=== PATIENT | female | born 1960 | race Hispanic/Latino ===

== ENCOUNTER 2018-03-07 12:38 | Emergency (ER) | payer SELFPAY ==
[2018-03-07 13:02] LABS: BASOPHILS % (AUTO) 0.5 % (0.0-5.0); EOSINOPHILS % (AUTO) 2.2 % (0.0-8.0); HEMATOCRIT 40.3 % (36-48); LYMPHOCYTES % (AUTO) 26.8 % (21.0-51.0); MEAN CORPUSCULAR HEMOGLOBIN 26.8 pg (27.0-33.0); MEAN CORPUSCULAR HGB CONC 33.9 g/dL (32.0-36.0); MONOCYTES % (AUTO) 6.4 % (3.0-13.0); NEUTROPHILS % (AUTO) 64.1 % (40.0-77.0); NUCLEATED RED BLOOD CELLS 0.1 % (0.0-0.19); PLATELET COUNT (AUTO) 293 K/uL (130-400); RED CELL DISTRIBUTION WIDTH 14.6 % (11.0-15.5); WHITE BLOOD COUNT (AUTO) 9.3 K/uL (4.8-10.8)
[2018-03-07] MEDS ORDERED: IPRATROPIUM/ALBUTEROL SULFATE 3 ML SOLUTION IH ONE ×2 (13:10→15:39)
[2018-03-07 13:11] LABS: CREATININE 0.8 mg/dL (0.5-1.5); POTASSIUM 3.7 mmol/L (3.5-5.1)
[2018-03-07 13:21] LABS: B-TYPE NATRIURETIC PEPTIDE 28 pg/mL (0-100)
[2018-03-07 13:24] LABS: ALBUMIN 3.5 g/dL (3.5-5.0); BILIRUBIN,TOTAL 0.2 mg/dL (0.2-1.0); CREATINE KINASE MB 0.9 ng/mL (0.5-3.6); TOTAL PROTEIN, SERUM 7.5 g/dL (6.0-8.3)
[2018-03-07 13:41] LABS: INR 0.95 (0.85-1.15); PARTIAL THROMBOPLASTIN TIME 26.5 SEC (26.3-35.5)
[2018-03-07] MEDS ORDERED: METHYLPREDNISOLONE SOD SUCC 40MG/ML 1ML ONE (14:08)
== END 2018-03-07 16:42 | disposition home or self-care (01) ==
LOC: EDH 12:38
DX: J44.1 Chronic obstructive pulmonary disease with (acute) exacerbation (principal); R60.9 Edema, unspecified; R07.9 Chest pain, unspecified; I10 Essential (primary) hypertension; E78.5 Hyperlipidemia, unspecified; E11.9 Type 2 diabetes mellitus without complications; Z72.0 Tobacco use
CPT/HCPCS: 36415; 71045; 80053; 82550; 82553; 83880; 84484 ×2; 85025; 85610; 85730; 93005 ×2; 93970; 94640 ×2; 96374; 99285; J2920